=== PATIENT | male | born 1960 | race Caucasian/White ===

== ENCOUNTER 2018-06-30 05:57 | Inpatient (IN) | payer BC ==
--- NOTE | 2018-06-30 06:22 | ED ---
Chest Pain HPI - General Chief Complaint: Chest Pain Stated Complaint: Chest Pain Time Seen by Provider: 06/30/18 06:07 Source: patient, family Mode of arrival: wheelchair Limitations: no limitations - History of Present Illness Initial Comments: This patient is a 58-year-old man who presents to be evaluated for chest pain. Patient relates that he had the onset of this approximately 1-1-1/2 hours ago. He states that he was taking shower at the time. He indicates the pain is across the upper chest and feels like tightness. He states it was moderate severity. He states pain does get better with rest. He states the pains do get worse with exertion. The patient notes she has been having intermittent episodes like this since February. This episode has resolved now. He told his physician about these episodes and was told that he would probably have to have a stress test but has not had any cardiac testing yet. Patient smokes usually over a half pack per day. MD Complaint: chest pain -: month(s) Onset: during exertion Pain Location: other (Upper chest) Pain Radiation: none Severity: moderate Quality: tightness Consistency: now resolved Improves With: rest Worsens With: exertion Anginal Symptoms: dyspnea Treatments Prior to Arrival: none - Related Data Home Medications Medication Instructions Recorded Confirmed Acetaminophen Tab [Tylenol Tab] 1,500 mg PO Q6HR PRN 06/30/18 06/30/18 Aspirin EC [Ecotrin Low Dose] 162 mg PO BID 06/30/18 06/30/18 [place]-3 Fatty Acids/Fish Oil [Fish 1 cap PO DAILY 06/30/18 06/30/18 Oil 1,000 mg Softgel] Previous Rx's Medication Instructions Recorded Atorvastatin [Lipitor] 80 mg PO HS #30 tab 07/01/18 Metoprolol Succinate (ER) [Toprol 100 mg PO DAILY #100 tab.er.24h 07/01/18 XL] Nitroglycerin Sl Tabs [Nitrostat] 0.4 mg SUBLINGUAL Q5M PRN #25 tab 07/01/18 Ticagrelor [Brilinta] 90 mg PO BID #60 tab 07/01/18 amLODIPine [Norvasc] 10 mg PO DAILY #30 tab 07/01/18 Allergies Allergy/AdvReac Type Severity Reaction Status Date / Time No Known Allergies Allergy Verified 06/30/18 07:07 Review of Systems ROS Statement: Those systems with pertinent positive or pertinent negative responses have been documented in the HPI. ROS Other: All systems not noted in ROS Statement are negative. Constitutional: Denies: fever, chills Respiratory: Reports: dyspnea. Denies: cough, wheezes Cardiovascular: Reports: chest pain, dyspnea on exertion. Denies: palpitations, orthopnea, edema, syncope Gastrointestinal: Denies: abdominal pain, nausea, vomiting, diarrhea Genitourinary: Denies: dysuria, hematuria Musculoskeletal: Denies: back pain Skin: Denies: rash Neurological: Denies: headache, weakness EKG Findings - EKG Results: EKG: interpreted by CORINAD, sinus rhythm (With frequent couplets, rate 78 bpm), normal axis, normal QRS, normal ST/T Past Medical History Past Medical History: Hypertension History of Any Multi-Drug Resistant Organisms: None Reported Past Surgical History: No Surgical Hx Reported Past Psychological History: No Psychological Hx Reported Smoking Status: Current every day smoker Past Alcohol Use History: None Reported Past Drug Use History: None Reported - Past Family History Mother Additional Family Medical History / Comment(s): Mother of suicide. Father Family Medical History: Dementia, Musculoskeletal Disorder, Neurologic Disorder Additional Family Medical History / Comment(s): Father of dementia/parkinsons General Exam Limitations: no limitations General appearance: alert, in no apparent distress Head exam: Present: atraumatic, normocephalic Eye exam: Present: normal appearance. Absent: scleral icterus, conjunctival injection ENT exam: Present: normal oropharynx Neck exam: Present: normal inspection Respiratory exam: Present: normal lung sounds bilaterally. Absent: respiratory distress, wheezes, rales, rhonchi, stridor Cardiovascular Exam: Present: regular rate, normal rhythm, normal heart sounds. Absent: systolic murmur, diastolic murmur, rubs, gallop GI/Abdominal exam: Present: soft. Absent: distended, tenderness, guarding, rebound, rigid, mass Extremities exam: Present: normal inspection, normal capillary refill. Absent: pedal edema, calf tenderness Back exam: Present: normal inspection. Absent: CVA tenderness (R), CVA tenderness (L) Neurological exam: Present: alert Skin exam: Present: warm, dry, intact, normal color. Absent: rash Course Vital Signs 06/30/18 06/30/18 06/30/18 06:01 06:16 07:21 Temperature 98.2 F Pulse Rate 73 75 Respiratory 20 18 18 Rate Blood Pressure 130/86 147/93 O2 Sat by Pulse 100 98 Oximetry Chest Pain MDM - MDM Patient's 58-year-old man presenting with history that sounds consistent with recent increase in his angina. He is symptom-free at the time of being seen in the emergency department. The patient be admitted, continue to have telemetry monitoring and serial enzymes as well as cardiology consultation. Critical Care Time Critical Care Time: Yes (35 minutes) Disposition Clinical Impression: Angina pectoris Disposition: ADMITTED IP TO THIS HOSP Condition: Serious
[2018-06-30] MEDS ORDERED: HEPARIN SODIUM,PORCINE 5,000 UNIT/ML 1 ML VIAL IV ONE (06:25)
[2018-06-30] MEDS ORDERED: NITROGLYCERIN SL TABS 0.4 MG TAB SUBLINGUAL PRN ×2 (06:25→15:02)
[2018-06-30 06:36] LABS: Basophils % (A) 0 %; Eosinophils # (A) 0.1 k/uL (0-0.7); Eosinophils % (A) 2 %; HGB 15.4 gm/dL (13.0-17.5); Lymphocytes # (A) 1.6 k/uL (1.0-4.8); Lymphocytes % (A) 22 %; MCH 30.8 pg (25.0-35.0); MCHC 33.4 g/dL (31.0-37.0); Mean Platelet Volume 6.4; Monocytes # (A) 0.4 k/uL (0-1.0); Monocytes % (A) 5 %; Neutrophils # (A) 4.9 k/uL (1.3-7.7); Neutrophils % (A) 68 %; Platelet Count 205 k/uL (150-450); RDW 13.6 % (11.5-15.5); WBC 7.2 k/uL (3.8-10.6)
[2018-06-30 06:45] LABS: INR 0.9 (<1.2); Partial Thromboplastin Time 24.2 sec (22.0-30.0); Prothrombin Time 9.5 sec (9.0-12.0)
[2018-06-30 06:46] LABS: ALT 30 U/L (21-72); AST 22 U/L (17-59); Albumin 4.6 g/dL (3.5-5.0); Alkaline Phosphatase 76 U/L (38-126); Anion Gap 10 mmol/L; Blood Urea Nitrogen 23 mg/dL (9-20); Calcium 10.2 mg/dL (8.4-10.2); Carbon Dioxide 20 mmol/L (22-30); Chloride 108 mmol/L (98-107); Glucose 110 mg/dL (74-99); Magnesium 1.6 mg/dL (1.6-2.3); Potassium 4.5 mmol/L (3.5-5.1); Sodium 138 mmol/L (137-145); Total Bilirubin 0.4 mg/dL (0.2-1.3); Total Protein 7.8 g/dL (6.3-8.2)
--- NOTE | 2018-06-30 06:59 | XR ---
EXAM: XR Chest, 1 View CLINICAL HISTORY: ITS.REASON XR Reason: chest pain TECHNIQUE: Frontal view of the chest. COMPARISON: No relevant prior studies available. FINDINGS: Lungs: Unremarkable. No consolidation. Pleural space: Unremarkable. No pneumothorax. Heart: Unremarkable. No cardiomegaly. Mediastinum: Unremarkable. Bones/joints: Degenerative changes noted involving the thoracic spine. IMPRESSION: No acute cardiopulmonary process identified.
[2018-06-30] MEDS: HEPARIN SOD,PORK IN 0.45% NACL 25,000 UNIT in 0.45% NACL 1 250ML.BAG IV SCH (07:13)
--- NOTE | 2018-06-30 10:45 | P.CRDCN ---
History of Present Illness Consult reason: chest pain History of present illness: This is Dr. Cross dictating a consult on this patient The patient was interviewed and examined by me IMPRESSION / ASSESSMENT: Recurrent exertional chest discomfort radiating somewhat to the left arm and relieved with rest Recurrent symptoms since February 2018 Frequent PVCs both originating from the right ventricle as well as from the left ventricle but no palpitations or presyncope Current smoker Elevated blood pressure readings but no prior diagnosis of hypertension States he is nondiabetic First cardiac enzyme is normal RV outflow PVCs upright QRS in lead 1 LV inferior wall PVCs PLAN: A detailed discussion with the patient and his sister. I would recommend proceeding directly with coronary angiography given his symptoms that are consistent with exertional angina as well as in view of the frequent right ventricular as well as left ventricle PVCs Lipid panel Aspirin 81 mg daily, atorvastatin 40 mg by mouth daily HPI Since February the patient has been experiencing exertional chest discomfort with some numbness in the left arm Recurrent Provoked with exertion relieved with rest No palpitations no syncope no dizziness no other associated symptoms Saw his primary care physician who ordered a stress test on him Elevated blood pressure readings here ROS: No fever chills or rigors, no cough, phlegm or expectoration, no nausea, vomiting or diarrhea, no hematuria, dysuria, no musculoskeletal complaints, no strokes or seizures, no skin lesions. EXAMINATION: 148/90 mmHg, normal respirations, resting comfortably in bed, quite anxious Pulse rate in the 70s Patient wants to go home No carotid bruits no JVD Normal heart sounds normal S1 normal S2 no murmurs or gallops no rub Abdomen nontender Breath sounds are clear no rhonchi no crackles Eccentric is warm no edema REVIEW OF LABS, ECG & MEDICAL DATA Normal hemoglobin of 15.4, normal white count, platelet count 205,000, normal electrolytes BUN 23 and creatinine 1.0 Past Medical History Past Medical History: Hypertension Additional Past Medical History / Comment(s): Frequent headaches/migraines, occasional low back pain, arthritis bilateral hands. History of Any Multi-Drug Resistant Organisms: None Reported Past Surgical History: Hernia Repair Additional Past Surgical History / Comment(s): Inguinal hernia repair- laterallity unknown to pt-done as a child Past Anesthesia/Blood Transfusion Reactions: No Reported Reaction Smoking Status: Current every day smoker - Past Family History Mother Additional Family Medical History / Comment(s): Mother of suicide. Father Family Medical History: Dementia, Musculoskeletal Disorder, Neurologic Disorder Additional Family Medical History / Comment(s): Father of dementia/parki antelmoons Medications and Allergies Home Medications Medication Instructions Recorded Confirmed Type Acetaminophen Tab [Tylenol Tab] 1,500 mg PO Q6HR PRN 06/30/18 06/30/18 History Aspirin EC [Ecotrin Low Dose] 162 mg PO BID 06/30/18 06/30/18 History [place]-3 Fatty Acids/Fish Oil [Fish 1 cap PO DAILY 06/30/18 06/30/18 History Oil 1,000 mg Softgel] Allergies Allergy/AdvReac Type Severity Reaction Status Date / Time No Known Allergies Allergy Verified 06/30/18 07:07 Physical Exam Vitals: Vital Signs Temp Pulse Resp BP BP Pulse Ox 06/30/18 09:30 16 150/92 98 06/30/18 09:15 16 148/90 97 06/30/18 09:06 77 16 128/85 98 06/30/18 07:21 75 18 147/93 98 06/30/18 06:16 18 06/30/18 06:01 98.2 F 73 20 130/86 100 Intake and Output 06/29/18 06/30/18 06/30/18 22:59 06:59 14:59 Other: Weight 72.575 kg Results 06/30/18 06:23 06/30/18 06:23 Cardiac Enzymes 06/30/18 06/30/18 Range/Units 06:23 06:23 AST 22 (17-59) U/L Troponin I <0.012 (0.000-0.034) ng/mL Coagulation 06/30/18 Range/Units 06:23 PT 9.5 (9.0-12.0) sec APTT 24.2 (22.0-30.0) sec CBC 06/30/18 Range/Units 06:23 WBC 7.2 (3.8-10.6) k/uL RBC 5.00 (4.30-5.90) m/uL Hgb 15.4 (13.0-17.5) gm/dL Hct 46.0 (39.0-53.0) % Plt Count 205 (150-450) k/uL Comprehensive Metabolic Panel 06/30/18 Range/Units 06:23 Sodium 138 (137-145) mmol/L Potassium 4.5 (3.5-5.1) mmol/L Chloride 108 H (98-107) mmol/L Carbon Dioxide 20 L (22-30) mmol/L BUN 23 H (9-20) mg/dL Creatinine 1.01 (0.66-1.25) mg/dL Glucose 110 H (74-99) mg/dL Calcium 10.2 (8.4-10.2) mg/dL AST 22 (17-59) U/L ALT 30 (21-72) U/L Alkaline Phosphatase 76 (38-126) U/L Total Protein 7.8 (6.3-8.2) g/dL Albumin 4.6 (3.5-5.0) g/dL Current Medications Generic Name Dose Route Start Last Admin Trade Name Freq PRN Reason Stop Dose Admin Aspirin 325 mg 07/01/18 09:00 Aspirin PO DAILY RACHANA Heparin Sodium/Sodium Chloride 250 mls @ 8.709 mls/hr 06/30/18 06:30 06/30/18 07:13 25,000 unit/ Sodium Chloride IV 12 units/kg/hr .Q24H RACHANA 8.709 mls/hr Administration Protocol 12 UNITS/KG/HR Nitroglycerin 0.4 mg 06/30/18 06:25 Nitrostat SUBLINGUAL Q5M PRN Chest Pain Intake and Output 06/29/18 06/30/18 06/30/18 22:59 06:59 14:59 Other: Weight 72.575 kg 06/30/18 06:23 06/30/18 06:23
--- NOTE | 2018-06-30 10:47 | P.PN ---
Progress Note - Text I did detailed discussion with the patient's. Options given regarding stress testing and coronary angiography I would recommend coronary angiography given his clear symptoms of exertional angina along with frequent right ventricular as well as left ventricular PVCs Risks of proceeding explained did risks of not proceeding with coronary angiography explained Spoke to his sister who is in agreement Patient is very nervous about having anything put inside his body
[2018-06-30] MEDS ORDERED: NICOTINE 14MG/24HR PATCH TRANSDERM STA (10:53)
[2018-06-30] MEDS ORDERED: ALPRAZolam 0.25 MG TAB PO PRN (10:53)
[2018-06-30] MEDS ORDERED: ALPRAZolam 0.5 MG TAB PO PRN ×2 (10:53→10:54)
[2018-06-30] MEDS ORDERED: SODIUM CHLORIDE 0.9% 1,000 ML in EMPTY BAG 1 BAG IV ONE (10:53)
[2018-06-30] MEDS ORDERED: NITROGLYCERIN OINT 1 INCH/GM PACKET TOPICAL STA (10:56)
[2018-06-30] MEDS ORDERED: ASPIRIN 325 MG TAB PO STA (11:10)
[2018-06-30] MEDS ORDERED: MIDAZOLAM (PF) 2 MG/2 ML VIAL IV ONE (13:35)
[2018-06-30] MEDS ORDERED: IV FLUID CONTINUATION 500 ML IV ONE (13:35)
[2018-06-30] MEDS ORDERED: fentaNYL (PF) 50 MCG/ML 2 ML AMP IV ONE (13:35)
[2018-06-30] MEDS ORDERED: LIDOCAINE 1% INJ 10MG/ML (20 ML MDV) SQ ONE ×2 (13:36→13:59)
[2018-06-30] MEDS: MIDAZOLAM (PF) 2 MG/2 ML VIAL IV ONE ×2 (14:00→14:17)
[2018-06-30] MEDS: VERAPAMIL SYRINGE (5 MG/10 ML) INTRAARTER ONE ×2 (14:00→14:54)
[2018-06-30] MEDS ORDERED: HEPARIN SODIUM 1,000 UN/ML (10ML VL) IV ONE (14:01)
[2018-06-30] MEDS ORDERED: BIVALIRUDIN BOLUS 250 MG/50 ML IV ONE ×2 (14:15)
[2018-06-30] MEDS ORDERED: TICAGRELOR 90 MG TAB PO ONE (14:19)
[2018-06-30] MEDS ORDERED: BIVALIRUDIN 250 MG in SODIUM CHLORIDE 0.9% 50 ML IV ONE ×4 (14:19)
[2018-06-30] MEDS ORDERED: NITROGLYCERIN 1000MCG/10ML SYRINGE INTRACORON ONE (14:30)
[2018-06-30] MEDS ORDERED: IOPAMIDOL-370 150ML BTL INJ ONE (14:32)
--- NOTE | 2018-06-30 14:49 | ECHOF ---
Referral Reason: MEASUREMENTS -------- HEIGHT: 182.9 cm WEIGHT: 72.6 kg BP: IVSd: 1.0 cm (0.6 - 1.1) LVIDd: 3.3 cm (3.9 - 5.3) LVPWd: 1.2 cm (0.6 - 1.1) IVSs: 1.3 cm LVIDs: 2.5 cm LVPWs: 1.2 cm LA Diam: 0.9 cm (2.7 - 3.8) RVIDd: 2.7 cm (< 3.3) LAESV Index (A-L): 10.50 ml/m Ao Diam: 2.8 cm (2.0 - 3.7) LA Diam: 2.2 cm (2.7 - 3.8) AV Cusp: 1.4 cm (1.5 - 2.6) EPSS: 1.1 cm MV E Wicho: 0.56 m/s MV DecT: 255 ms MV A Wicho: 0.81 m/s MV E/A Ratio: 0.69 RAP: 5.00 mmHg RVSP: 13.31 mmHg MV EF SLOPE: 149.45 mm/s (70 - 150) MV EXCURSION: 1.99 cm (> 18.000) FINDINGS -------- Sinus rhythm. This was a technically good study. The left ventricular size is normal. There is mild concentric left ventricular hypertrophy. Overa ll left ventricular systolic function is low-normal with, an EF between 50 - 55 %. The right ventricle is normal in size. Normal LA size by volume 22+/-6 ml/m2. The right atrial size is normal. Interatrial and interventricular septum intact. The aortic valve is trileaflet and appears structurally normal. Mild mitral regurgitation is present. Trace tricuspid regurgitation present. The right ventricular systolic pressure, as measured by Dopp ler, is 13.31mmHg. There is no pulmonic regurgitation present. The aortic root size is normal. Normal inferior vena cava with normal inspiratory collapse consistent with estimated right atrial pre ssure of 5 mmHg. There is no pericardial effusion. CONCLUSIONS -------- 1. Sinus rhythm. 2. This was a technically good study. 3. The left ventricular size is normal. 4. There is mild concentric left ventricular hypertrophy. 5. Overall left ventricular systolic function is low-normal with, an EF between 50 - 55 %. 6. The right ventricle is normal in size. 7. Normal LA size by volume 22+/-6 ml/m2. 8. The right atrial size is normal. 9. Interatrial and interventricular septum intact. 10. The aortic valve is trileaflet and appears structurally normal. 11. Mild mitral regurgitation is present. 12. Trace tricuspid regurgitation present. 13. The right ventricular systolic pressure, as measured by Doppler, is 13.31mmHg. 14. There is no pulmonic regurgitation present. 15. The aortic root size is normal. 16. Normal inferior vena cava with normal inspiratory collapse consistent with estimated right atrial pressure of 5 mmHg. 17. There is no pericardial effusion. COIL WRAPPER: So Mishra RDCS
[2018-06-30] MEDS ORDERED: IOPAMIDOL-370 100ML BTL INJ ONE ×2 (14:53→14:54)
[2018-06-30] MEDS ORDERED: MAG HYDROX/AL HYDROX/SIMETH 30 ML CUP PO PRN (15:02)
[2018-06-30] MEDS ORDERED: RX INFO: IV CONTRAST WAS GIVEN 1 EACH MISC MISCELLANE PRN (15:02)
[2018-06-30] MEDS ORDERED: ZOLPIDEM 5 MG TAB PO PRN (15:02)
[2018-06-30] MEDS ORDERED: ATROPINE SULFATE 0.1 MG/ML 10ML SYRINGE IV PRN (15:02)
[2018-06-30] MEDS ORDERED: SODIUM CHLORIDE 0.9% 1,000 ML IV SCH (15:15)
[2018-06-30] MEDS: ATORVASTATIN 40 MG TAB PO SCH (15:28)
--- NOTE | 2018-06-30 16:02 | CC ---
CARDIAC CATHETERIZATION REPORT This patient was admitted with a complaint of palpitations. Patient was found to have multiple PVCs. Patient was evaluated by Dr. Cross and the patient was advised cardiac catheterization. DESCRIPTION OF PROCEDURE: The patient's both femoral pulses were very weak. The patient does have a history of significant intermittent claudications. Under the ultrasound guidance, the right femoral artery was entered using micropuncture technique needle and a small sheath was placed in. However, the Glidewire could not be advanced into the aorta. Subsequently the Glidewire and sheath were removed. Dr. Crow is going to do the catheterization through the radial approach. MMODL / IJN: [id number] /
--- NOTE | 2018-06-30 16:10 | CC ---
CARDIAC CATHETERIZATION REPORT DATE OF SERVICE: June 30, 2018 PERFORMING PHYSICIAN: Dimitris Crow MD, billing coordinator. PROCEDURE PERFORMED: 1. Selective right and left coronary angiogram. 2. Left heart catheterization. 3. Successful stenting of the mid left circumflex using 2.75 x 15 mm Xience drug- eluting stent with reduction of stenosis from 99.9% to 0%. 4. Successful stenting of the mid LAD using a 3.0 x 23 mm Xience drug-eluting stent with reduction of stenosis from 70% to 0%. 5. An aortogram. HISTORY: This is a 58-year-old gentleman with significant history of smoking, who presented to the hospital with chest discomfort and was seen by Dr. Cross who did recommend proceeding with a heart catheterization feeling that his symptoms are quite classical for angina. APPROACH: 1. Right common femoral artery. 2. Right radial artery. COMPLICATION: None. LEVEL OF SEDATION: Moderate with sedation length of 45 minutes. PROCEDURE DESCRIPTION: The patient was initially brought to undergo a heart catheterization from right femoral approach by Dr. Garcia, but Dr. Garcia did not feel any good right femoral pulse and he attempted accessing the right common femoral artery, but the wire did not go through. Because of that, the femoral approach was aborted and I was asked to perform a radial approach on the patient. The right radial vein was cannulated using micropuncture technique, the micropuncture wire passed easily. Then I placed a 6-Monegasque sheath 11 cm in the right radial artery. At that point, I gave the patient 2 mg of verapamil IA. After that, I did selective right and left coronary angiogram using JR4 and JL3.5 catheters. After that, I did intervene on the left circumflex and LAD. Please see a separate paragraph for that. Then I did left heart catheterization using 6-Monegasque pigtail catheter before I did an aortogram using the same pigtail catheter. The procedure was completed without any complication. SELECTIVE PERIPHERAL ANGIOGRAM: 1. RCA is a large caliber vessel and is a dominant vessel, appeared to have mild disease only. Distally bifurcates into PDA and PLV branches both appear to have mild disease only. 2. The left main is angiographically normal. It bifurcates into the circumflex and left anterior descending artery. 3. The left circumflex is a large caliber vessel. It is a codominant vessel. The proximal circumflex appeared to have mild disease only. The mid circumflex has a lesion appeared to be in the range of 99.9%. This is just proximal to the bifurcation of the first OM branch which appeared to be normally and the circ bifurcates into PDA and PLV branches both appeared to be angiographically normal. 4. The LAD: The proximal LAD appeared to have mild disease only. The mid LAD between the bifurcation of the first and second diagonal branch has a lesion appeared to be in the range of 70% to 80%. The LAD distally appeared to be normal. HEMODYNAMICS: The left ventricular end diastolic pressure was 8 mmHg without gradient across aortic valve. PCI OF THE LEFT CIRCUMFLEX AND LAD: Anticoagulation was initiated using Angiomax. Subsequently I took a JL3 guide and the left main was engaged. A Whisper wire was used to wire the left circumflex coronary artery. I did predilatation using 2.5 x 12 mm balloon before I deployed 2.75 x 15 mm Xience TUCKER where the stent was positioned under fluoroscopy guidance and deployed under 12 atmospheres for 20 seconds with the following angiogram showing good angiographic results and reduction of stenosis from 99% to 0%. Subsequently, the wire was directed toward the LAD and I did balloon angioplasty of the LAD using 2.5 x 15 mm balloon before I deployed 3.0 x 23 mm Xience drug-eluting stent where the stent was positioned under fluoroscopy guidance and deployed under 16 atmospheres for 20 seconds. The following angiogram showed good angiographic results and the procedure was completed without any complication. AORTOGRAM: The infrarenal aorta was imaged using digital subtraction. We did power injection as well. The infrarenal aorta just above the bifurcation into right and left common iliac artery appeared to have a critical lesion if not totally occluded. CONCLUSION: 1. 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 2. Severe disease involving the mid left anterior descending artery. 3. Successful stenting of both the left circumflex and LAD as described above. 4. Occluded infrarenal aorta. POSTPROCEDURE MANAGEMENT: 1. Dual anti-platelet therapy. 2. Risk factors modifications including smoking cessation. 3. CTA of the aorta to assess the lesion in the infrarenal aorta. MMODL / IJN: [id number] /
--- NOTE | 2018-06-30 16:27 | P.HPIM ---
History of Present Illness 58-year-old pleasant gentleman came in with complains of chest pain exertional rash like sensation moderate severity radiating to the left arm associated with diaphoresis nonpleuritic not associated with food. Patient has typical chest pain and hasPVCs on the EKG of the facet of troponin is negative patient has extensive smoking history because of the typical nature of the chest pain patient had cardiac catheterization found to have critical occlusion of circumflex and patient received stent to mid circumflex and mid LAD and there is also occlusion of infrarenal aorta. Extensive counseling regarding importance of continuation of statins due antiplatelet therapy and the smoking cessation was provided to the patient patient is clinically doing well. Patient any fever chills nausea vomiting. I saw him postoperatively after the cardiac catheterization and stent placement Review of Systems REVIEW OF SYSTEMS: CONSTITUTIONAL: No fever, no malaise, no fatigue. HEENT: No recent visual problems or hearing problems. Denied any sore throat. CARDIOVASCULAR: No chest pain, orthopnea, PND, no palpitations, no syncope. had chest pain when he came in presently doesn't have any chest pain PULMONARY: No shortness of breath, no cough, no hemoptysis. GASTROINTESTINAL: No diarrhea, no nausea, no vomiting, no abdominal pain. NEUROLOGICAL: No headaches, no weakness, no numbness. HEMATOLOGICAL: Denies any bleeding or petechiae. GENITOURINARY: Denies any burning micturition, frequency, or urgency. MUSCULOSKELETAL/RHEUMATOLOGICAL: Denies any joint pain, swelling, or any muscle pain. ENDOCRINE: Denies any polyuria or polydipsia. The rest of the 14-point review of systems is negative. Past Medical History Past Medical History: Hypertension Additional Past Medical History / Comment(s): Frequent headaches/migraines, occa sional low back pain, arthritis bilateral hands. History of Any Multi-Drug Resistant Organisms: None Reported Past Surgical History: Hernia Repair Additional Past Surgical History / Comment(s): Inguinal hernia repair-laterall ity unknown to pt-done as a child Past Anesthesia/Blood Transfusion Reactions: No Reported Reaction Smoking Status: Current every day smoker - Past Family History Mother Additional Family Medical History / Comment(s): Mother of suicide. Father Family Medical History: Dementia, Musculoskeletal Disorder, Neurologic Disorder Additional Family Medical History / Comment(s): Father of dementia/parkinsons Medications and Allergies Home Medications Medication Instructions Recorded Confirmed Type Acetaminophen Tab [Tylenol Tab] 1,500 mg PO Q6HR PRN 06/30/18 06/30/18 History Aspirin EC [Ecotrin Low Dose] 162 mg PO BID 06/30/18 06/30/18 History [place]-3 Fatty Acids/Fish Oil [Fish 1 cap PO DAILY 06/30/18 06/30/18 History Oil 1,000 mg Softgel] Allergies Allergy/AdvReac Type Severity Reaction Status Date / Time No Known Allergies Allergy Verified 06/30/18 07:07 Physical Exam Vitals: Vital Signs Temp Pulse Resp BP BP Pulse Ox 06/30/18 15:16 99 06/30/18 09:30 16 150/92 98 06/30/18 09:15 16 148/90 97 06/30/18 09:06 77 16 128/85 98 06/30/18 07:21 75 18 147/93 98 06/30/18 06:16 18 06/30/18 06:01 98.2 F 73 20 130/86 100 Intake and Output 06/30/18 06/30/18 06/30/18 06:59 14:59 22:59 Intake Total 182 Balance 182 Intake: IV 182 Other: Weight 72.575 kg PHYSICAL EXAMINATION: GENERAL: The patient is alert and oriented x3, not in any acute distress. Well developed, well nourished. HEENT: Pupils are round and equally reacting to light. EOMI. No scleral icterus. No conjunctival pallor. Normocephalic, atraumatic. No pharyngeal erythema. No thyromegaly. CARDIOVASCULAR: S1 and S2 present. No murmurs, rubs, or gallops. PULMONARY: Chest is clear to auscultation, no wheezing or crackles. ABDOMEN: Soft, nontender, nondistended, normoactive bowel sounds. No palpable organomegaly. MUSCULOSKELETAL: No joint swelling or deformity. EXTREMITIES: No cyanosis, clubbing, or pedal edema. NEUROLOGICAL: Gross neurological examination did not reveal any focal deficits. SKIN: No rashes. Results CBC & Chem 7: 06/30/18 06:23 06/30/18 06:23 Labs: Abnormal Lab Results - Last 24 Hours (Table) 06/30/18 Range/Units 06:23 Chloride 108 H (98-107) mmol/L Carbon Dioxide 20 L (22-30) mmol/L BUN 23 H (9-20) mg/dL Glucose 110 H (74-99) mg/dL Thrombosis Risk Factor Assmnt - Choose All That Apply Any of the Below Risk Factors Present?: Yes Each Factor Represents 1 point: Age 41-60 years Other Risk Factors: No Other congenital or acquired thrombophilia - If yes, enter type in comment: No Thrombosis Risk Factor Assessment Total Risk Factor Score: 1 Thrombosis Risk Factor Assessment Level: Low Risk Assessment and Plan Plan: -unstable angina: Patient is status post carotid catheterization and stenting of mid circumflex and mid LAD. Continue dual antiplatelet free beta oscar statin. 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 disease is as an outpatient -Hyperlipidemia
[2018-06-30] MEDS: amLODIPine 10 MG TAB PO SCH (17:31)
[2018-06-30] MEDS: METOPROLOL SUCCINATE (ER) 100 MG TAB.ER.24H PO SCH (17:31)
[2018-06-30] MEDS: TICAGRELOR 90 MG TAB PO SCH (20:35)
[2018-06-30 21:46] VITALS: RESP 18
[2018-06-30] MEDS: ACETAMINOPHEN TAB 325 MG TAB PO PRN (23:28)
[2018-07-01] MEDS: HEPARIN SOD,PORK IN 0.45% NACL 25,000 UNIT in 0.45% NACL 1 250ML.BAG IV SCH (06:05)
[2018-07-01 06:20] LABS: Basophils % (A) 0 %; Eosinophils # (A) 0.1 k/uL (0-0.7); Eosinophils % (A) 1 %; HCT 46.5 % (39.0-53.0); Lymphocytes # (A) 1.5 k/uL (1.0-4.8); Lymphocytes % (A) 17 %; MCH 29.6 pg (25.0-35.0); MCHC 32.2 g/dL (31.0-37.0); MCV 91.9 fL (80.0-100.0); Monocytes # (A) 0.6 k/uL (0-1.0); Monocytes % (A) 7 %; Neutrophils # (A) 6.4 k/uL (1.3-7.7); Neutrophils % (A) 73 %; Platelet Count 240 k/uL (150-450); RBC 5.06 m/uL (4.30-5.90); RDW 14.3 % (11.5-15.5); WBC 8.8 k/uL (3.8-10.6)
[2018-07-01] MEDS: ACETAMINOPHEN TAB 325 MG TAB PO PRN (06:23)
[2018-07-01 06:30] LABS: Anion Gap 7 mmol/L; Blood Urea Nitrogen 18 mg/dL (9-20); Calcium 9.3 mg/dL (8.4-10.2); Carbon Dioxide 23 mmol/L (22-30); Chloride 108 mmol/L (98-107); Cholesterol 218 mg/dL (<200); Glucose 94 mg/dL (74-99); HDL Cholesterol 38 mg/dL (40-60); LDL Cholesterol,Calculated 154 mg/dL (0-99); Potassium 4.7 mmol/L (3.5-5.1); Sodium 138 mmol/L (137-145); Triglycerides 130 mg/dL (<150)
[2018-07-01 07:36] VITALS: TEMP 98
[2018-07-01] MEDS: METOPROLOL SUCCINATE (ER) 100 MG TAB.ER.24H PO SCH (08:46)
[2018-07-01] MEDS: TICAGRELOR 90 MG TAB PO SCH (08:47)
[2018-07-01] MEDS: amLODIPine 10 MG TAB PO SCH (08:47)
[2018-07-01] MEDS: ATORVASTATIN 40 MG TAB PO SCH (08:47)
[2018-07-01] MEDS ORDERED: ASPIRIN 81 MG PO SCH (09:00)
[2018-07-01] MEDS ORDERED: ASPIRIN 325 MG TAB PO SCH (09:00)
[2018-07-01 11:27] VITALS: BMI 21.0
--- NOTE | 2018-07-01 11:38 | P.PN ---
Subjective Progress Note Date: 07/01/18 This is a 58-year-old gentleman with history of nicotine dependence, who initially presented to the hospital on this admission with symptoms of exertional chest discomfort with some associated numbness in his left arm. According to the patient, also for several years he's been. Patient has also been experiencing pain in his bilateral upper legs if he would cut the grass or do short periods of walking suggestive of intermittent claudication. He would have to sit down because it was so painful. Patient was taken to the cardiac catheterization lab yesterday, patient was found to have a 99% stenosis of the circumflex and a 70% stenosis of the LAD for which he underwent stenting of both of those vessels. She also underwent an aortogram of the infrarenal. The infrarenal artery just above the bifurcation into the right and left common iliac artery appeared to have a critical lesion if not totally occluded. He was seen and examined this morning, feels well, eager to be discharged home. Hemodynamically he is stable. His right radial site is clean and dry with good distal pulse, blood pressure 110/60 with a heart rate in the 60s. CBC is normal, sodium 138, potassium 4.7, BUN 18 and creatinine 1.0. Cholesterol 218, LDL 154, HDL 38 and triglycerides 1:30. Objective - Vital Signs Vital signs: Vital Signs Temp 98.0 F 07/01/18 07:33 Pulse 65 07/01/18 07:33 Resp 18 07/01/18 07:33 BP 111/66 07/01/18 07:33 Pulse Ox 98 07/01/18 07:33 Intake & Output 06/30/18 07/01/18 07/01/18 18:59 06:59 18:59 Intake Total 1022 675 240 Output Total 325 Balance 697 675 240 Weight 68.5 kg Intake: IV 257 675 Sodium Chloride 0.9% 1, 75 675 000 ml @ 75 mls/hr IV . [id number] [facility] Rx#:[id number] Oral 765 240 Output: Urine 325 Other: Voiding Method Toilet # Voids 1 - Exam PHYSICAL EXAMINATION: GENERAL: 58-year-old gentleman in no acute distress at the time of my examination HEENT: Head is atraumatic, normocephalic. Pupils equal, round. Sclera anicteric. Conjunctiva are clear. Mucous membranes of the mouth are moist. Neck is supple. There is no elevated jugular venous pressure. No carotid bruit is heard. HEART EXAMINATION: Heart S1, S2 normal. No murmur or gallop heard. CHEST EXAMINATION: Lungs are clear to auscultation and precussion. No chest wall tenderness is noted on palpation or with deep breathing. ABDOMEN: Soft, nontender. Bowel sounds are heard. No organomegaly noted. EXTREMITIES: 1+ peripheral pulses with no evidence of peripheral edema and no calf tenderness noted. Right radial site clean and dry, good distal pulse. NEUROLOGIC patient is awake, alert and oriented X3. . - Labs CBC & Chem 7: 07/01/18 06:02 07/01/18 06:02 Labs: Abnormal Lab Results - Last 24 Hours (Table) 06/30/18 07/01/18 Range/Units 18:18 06:02 Chloride 108 H (98-107) mmol/L Troponin I 0.035 H* (0.000-0.034) ng/mL Cholesterol 218 H (<200) mg/dL LDL Cholesterol, Calc 154 H (0-99) mg/dL HDL Cholesterol 38 L (40-60) mg/dL Assessment and Plan Plan: Assessment and plan #1 status post angioplasty and stenting of the circumflex and LAD #2 status post aortogram of the infrarenal aorta which revealed a critical lesion if not totally occluded area distal to the bifurcation into the right and left common iliac artery #3 nicotine dependence #4 hyperlipidemia Plan Patient may be able to be discharged home today. As an outpatient we will schedule him to have a CTA of the aorta and lower extremities performed for PAD. A follow-up appointment will be made with Dr. Cross in the office. Patient will be discharged home on Norvasc 10 mg daily, Ecotrin 81 mg daily, Lipitor 80 mg daily, metoprolol Succinate 100 mg daily, nicotine patch, Brilinta 90 mg one tablet by mouth twice a day and sublingual nitroglycerin as needed for chest pain. Patient has been encouraged regarding the importance of nicotine ce ssation. DNP note has been reviewed, I agree with a documented findings and plan of care. Patient was seen and examined.
[2018-07-01 12:39] VITALS: BP 109/58; PULSE 67
--- NOTE | 2018-07-01 12:51 | P.DS ---
Providers Date of admission: 06/30/18 06:27 Attending physician: Fiordaliza Guzman Consults: 06/30/18 06:25 Consult Physician Routine Consulting Provider: Dimitris Crow Consult Reason/Comments: chest pain Do you want consulting provider notified?: Yes 06/30/18 15:02 Consult Physician Routine Consulting Provider: Cardiology Rosalinda Consult Reason/Comments: Post Interventional patient Do you want consulting provider notified?: Already Contacted Primary care physician: [place] Hospital Course: 58-year-old pleasant gentleman came in with complains of chest pain exertional rash like sensation moderate severity radiating to the left arm associated with diaphoresis nonpleuritic not associated with food. Patient has typical chest pain and hasPVCs on the EKG of the facet of troponin is negative patient has extensive smoking history because of the typical nature of the chest pain patient had cardiac catheterization found to have critical occlusion of circumflex and patient received stent to mid circumflex and mid LAD and there is also occlusion of infrarenal aorta. Extensive counseling regarding importance of continuation of statins due antiplatelet therapy and the smoking cessation wa s provided to the patient patient is clinically doing well. Patient any fever chills nausea vomiting. I saw him postoperatively after the cardiac catheterization and stent placement. 07/01/2018 Patient is clinically doing well is cleared by cardiology and patient is being discharged today counseling regarding smoking cessation was provided again today. PHYSICAL EXAMINATION: GENERAL: The patient is alert and oriented x3, not in any acute distress. Well developed, well nourished. HEENT: Pupils are round and equally reacting to light. EOMI. No scleral icterus. No conjunctival pallor. Normocephalic, atraumatic. No pharyngeal erythema. No thyromegaly. CARDIOVASCULAR: S1 and S2 present. No murmurs, rubs, or gallops. PULMONARY: Chest is clear to auscultation, no wheezing or crackles. ABDOMEN: Soft, nontender, nondistended, normoactive bowel sounds. No palpable organomegaly. MUSCULOSKELETAL: No joint swelling or deformity. EXTREMITIES: No cyanosis, clubbing, or pedal edema. NEUROLOGICAL: Gross neurological examination did not reveal any focal deficits. SKIN: No rashes. Assessment and Plan Plan: -unstable angina: Patient is status post carotid catheterization and stenting of mid circumflex and mid LAD. Echocardiogram showed normal ejection fraction -Extensive nicotine abuse: Counseling was provided -Complete occlusion of infrarenal aorta along with possible perivascular disease: The antiplatelet therapy was discontinued patient will be further worked up as an outpatient -Hyperlipidemia -Hypertension Plan - Discharge Summary Discharge Rx Participant: No New Discharge Prescriptions: New Ticagrelor [Brilinta] 90 mg PO BID #60 tab Atorvastatin [Lipitor] 80 mg PO HS #30 tab Nitroglycerin Sl Tabs [Nitrostat] 0.4 mg SUBLINGUAL Q5M PRN #25 tab PRN Reason: Chest Pain amLODIPine [Norvasc] 10 mg PO DAILY #30 tab Metoprolol Succinate (ER) [Toprol XL] 100 mg PO DAILY #100 tab.er.24h Continue Aspirin EC [Ecotrin Low Dose] 162 mg PO BID [place]-3 Fatty Acids/Fish Oil [Fish Oil 1,000 mg Softgel] 1 cap PO DAILY No Action Acetaminophen Tab [Tylenol Tab] 1,500 mg PO Q6HR PRN PRN Reason: Pain Discharge Medication List Acetaminophen Tab [Tylenol Tab] 1,500 mg PO Q6HR PRN 06/30/18 [History] Aspirin EC [Ecotrin Low Dose] 162 mg PO BID 06/30/18 [History] [place]-3 Fatty Acids/Fish Oil [Fish Oil 1,000 mg Softgel] 1 cap PO DAILY 06/30/18 [History] Atorvastatin [Lipitor] 80 mg PO HS #30 tab 07/01/18 [Rx] Metoprolol Succinate (ER) [Toprol XL] 100 mg PO DAILY #100 tab.er.24h 07/01/18 [Rx] Nitroglycerin Sl Tabs [Nitrostat] 0.4 mg SUBLINGUAL Q5M PRN #25 tab 07/01/18 [Rx] Ticagrelor [Brilinta] 90 mg PO BID #60 tab 07/01/18 [Rx] amLODIPine [Norvasc] 10 mg PO DAILY #30 tab 07/01/18 [Rx] Follow up Appointment(s)/Referral(s): Mynor Cross MD [STAFF PHYSICIAN] - 07/09/18 5:15 pm () Ronak Tobin DO [Primary Care Provider] - 07/07/18 1:00 pm (Need prior authorization from PCP to schedule CTA of thoracic aorta and lower extremities.) Patient Instructions/Handouts: *Surgery [facility] - After Heart Catheterization - Food Preservation Scientist Instructions, How to Stop Smoking (DC), Heart Healthy Diet (DC) Activity/Diet/Wound Care/Special Instructions: pt qualifies for $5/mo [place] (Schedule patient for CTA aorta and Lower extremeties, diagnosis PAD.) Discharge/Stand Alone Forms: Work/Release Restrictions Form
[2018-07-01] MEDS ORDERED: ATORVASTATIN 80 MG TAB PO SCH (21:00)
== END 2018-07-01 14:28 | disposition home or self-care (01) | DRG 247 ==
LOC: EC 05:57 → 3SCARD 06:27 → OBSVTOIN 06:27 → 1SOBS 08:31 → 3SCARD 16:01
PROVIDERS: ADMIT Hospitalist; ATTEND Hospitalist
PROC: B2151ZZ Fluoroscopy of Left Heart using Low Osmolar Contrast (ICD-10-PCS; 2018-06-30)
PROC: B4101ZZ Fluoroscopy of Abdominal Aorta using Low Osmolar Contrast (ICD-10-PCS; principal; 2018-06-30 13:11)
PROC: 027135Z Dilation of Coronary Artery, Two Arteries with Two Drug-eluting Intraluminal Devices, Percutaneous Approach (ICD-10-PCS; 2018-06-30 13:11)
PROC: 4A023N7 Measurement of Cardiac Sampling and Pressure, Left Heart, Percutaneous Approach (ICD-10-PCS; 2018-06-30 13:11)
PROC: B2111ZZ Fluoroscopy of Multiple Coronary Arteries using Low Osmolar Contrast (ICD-10-PCS; 2018-06-30 13:11)
DX: I25.110 Atherosclerotic heart disease of native coronary artery with unstable angina pectoris (principal); E78.5 Hyperlipidemia, unspecified; F17.210 Nicotine dependence, cigarettes, uncomplicated; Z71.6 Tobacco abuse counseling; I10 Essential (primary) hypertension; I49.3 Ventricular premature depolarization; M19.041 Primary osteoarthritis, right hand; M19.042 Primary osteoarthritis, left hand; Z79.02 Long term (current) use of antithrombotics/antiplatelets; Z79.82 Long term (current) use of aspirin; Z82.0 Family history of epilepsy and other diseases of the nervous system; G43.909 Migraine, unspecified, not intractable, without status migrainosus; Z81.8 Family history of other mental and behavioral disorders; Z60.2 Problems related to living alone; I73.9 Peripheral vascular disease, unspecified; I70.0 Atherosclerosis of aorta; Z53.09 Procedure and treatment not carried out because of other contraindication; Z82.69 Family history of other diseases of the musculoskeletal system and connective tissue
CPT/HCPCS: 36415; 71045; 75625; 80048; 80053; 80061; 83735; 84484; 85025; 85610; 85730; 93005; 93306; 93458; 94760; 96365; 96366; 96376; 99291; C1874

== ENCOUNTER → 2018-07-23 | Outpatient (CLI) | payer BC ==
--- NOTE | 2018-07-23 16:18 | CT ---
EXAMINATION TYPE: CT angio thor/abd pel aorta DATE OF EXAM: 07/23/2018 COMPARISON: NONE HISTORY: c/o bilateral leg pain CT DLP: 581.2 mGycm. Automated Exposure Control for Dose Reduction was Utilized. CONTRAST: CTA scan of the thorax and abdomen is performed with IV Contrast, patient injected with 100 mL of Iso capo 370. FINDINGS: VASCULAR: There is total occlusion of the infrarenal abdominal aorta beginning 4.0 cm distal to the l ower renal artery (left). The precontrast images of the thorax demonstrate no evidence of intramural hematoma. Within the thorax there is conventional three-vessel branch pattern of the aortic arch. The ascending thoracic aorta is within normal limits measuring 3.2 cm and descending thoracic aorta is a lso within normal limits measuring 2.3 cm. No central pulmonary embolus. Main pulmonary artery is wit hin normal limits. Moderate to severe coronary artery calcifications are seen within the left anterio r descending coronary artery. In the abdominal aorta there is severe calcific and noncalcific atherom atous plaquing in the upper abdominal aorta with total occlusion of the infrarenal abdominal aorta. Perfusion of the renal arteries is maintained with 2 left renal arteries identified, the most inferio r and second renal artery is diminutive. There is appropriate opacification of the celiac axis and SM A. FELIZ appears to demonstrate ostial narrowing but patency in its visualized portion. LUNGS: There is a 3 mm pulmonary nodule in the left upper lobe that is solid on image 26. No prior av ailable for comparison of stability. Within the remainder of the lungs there is no evidence of focal consolidation, pleural effusion or pneumothorax. Main tracheobronchial tree is patent. MEDIASTINUM: There are no greater than 1 cm hilar or mediastinal lymph nodes. No pericardial effusi on is seen. LIVER/GB: There are scattered subcentimeter too small to accurately characterize hypoattenuated hepat ic lesions. Additionally liver enhancement is somewhat suboptimally evaluated in this angiographic ph ase of the liver. The gallbladder is contracted without radiopaque calculi. PANCREAS: No significant abnormality is seen. SPLEEN: No significant abnormality is seen. No splenomegaly. ADRENALS: No significant abnormality is seen. KIDNEYS: Kidneys enhance symmetrically without hydronephrosis. BOWEL: No dilated large or small bowel. LYMPH NODES: No greater than 1cm abdominal or pelvic lymph nodes are appreciated. OSSEOUS STRUCTURES: Moderate multilevel degenerative changes of the spine are seen with bridging ante rior osteophytes of the midthoracic spine, possibly diffuse idiopathic skeletal hyperostosis. IMPRESSION: 1. Aortoiliac occlusion (Lercihe syndrome) appears chronic as there are numerous small lumbar, abdomi nal and gluteal collaterals and opacification of the very most distal aspect of the common iliac shilpi perla with contrast seen in the limited visualized portions of the internal and external iliac arterie s. 2. Severe atherosclerosis of the left anterior descending coronary artery, a marker of coronary arter y disease. 3. Incidentally noted 3 mm left pulmonary nodule for which follow up CT chest could be performed in 1 2 months. A Yellow level critical message alert has been initiated for Mynor Cross MD via the [employer] Critical Results System on 07/23/2018 4:09 PM. This message alert has been sent to Renee Maurer via the preferences provided by the clinician for the receipt of Radiology Critical Findings. [place] ID [id number].
== END ==
LOC: RADCTMAIN 14:55
PROVIDERS: ATTEND Internal Medicine Clinical Cardiac Electrophysiology
DX: I74.09 Other arterial embolism and thrombosis of abdominal aorta (principal); I25.10 Atherosclerotic heart disease of native coronary artery without angina pectoris
CPT/HCPCS: 71275; 74174; Q9967